=== PATIENT | female | born 1965 | race Caucasian/White ===

== ENCOUNTER 2025-11-07 07:52 | Outpatient (CLI) | payer OTHER, SELFPAY ==
--- OUTSIDE RECORDS SUMMARY | 2025-11-07 07:56 | XMS_ITS | Clinical Summary ---
Author Organization [facility] Address [address] [place] [address] Care Team Providers Care Traveling Construction Superintendent Name Role Phone Radha Garcia Primary Care Provider [phone] Allergies Active Allergy Reactions Criticality Noted Date Comments Codeine Agitation Low 10/02/2014 Hydroxyzine Unknown 02/17/2005 Sulfamethoxazole-Trimethoprim Unknown 2004 Medications levothyroxine (SYNTHROID) 125 mcg tablet Take 1 tablet (125 mcg total) by mouth anesthesiologist/physician before breakfast Active pantoprazole DR (PROTONIX) 40 mg EC tablet Take 1 tablet (40 mg total) by mouth daily Active methylphenidate ER (CONCERTA) 36 mg CR tabletIndications :Attention-Defici t Hyperactivity Disorder Take 1 tablet (36 mg total) by mouth every morning Active canagliflozin-met formin 50-500 mg tablet Take by mouth 2 (two) times a day Active empagliflozin (JARDIANCE) 25 mg tablet 1 tablet (25 mg total) daily Active magnesium hydroxide 400 mg (170 mg magnesium) tablet,chewable Take by mouth Active glimepiride (AMARYL) 1 mg tabletIndications :type 2 diabetes mellitus Take 1 tablet (1 mg total) by mouth daily before breakfast Active cetirizine (ZyrTEC) 10 mg tablet Take 1 tablet (10 mg total) by mouth daily Active rosuvastatin (CRESTOR) 20 mg tablet Take 1 tablet (20 mg total) by mouth daily Active diphenhydrAMINE 25 mg capsule Take 1 tablet/capsule (25 mg total) by mouth every 6 (six) hours as needed for itching Active fluticasone propionate (FLONASE) 50 mcg/actuation nasal spray Administer 1 spray into each nostril daily Active azelastine (ASTELIN) 137 mcg (0.1 %) nasal spray Administer 1 spray into each nostril 2 (two) times a day Use in each nostril as directed Active estradioL (VAGIFEM) 10 mcg tablet Insert 1 tablet (10 mcg total) into the vagina daily Active clobetasoL (TEMOVATE) 0.05 % cream Apply topically 2 (two) times a day Active cholecalciferol (Vitamin D3) 2000 unit tablet Take 50 mcg by mouth 3 Active FreeStyle Lite Strips strip 4 Active alcohol swabs pads, medicated 4 Active diclofenac sodium (VOLTAREN) 1 % gel Active magnesium oxide (MAG-OX) 400 mg (241.3 mg elemental magnesium) tablet 4 Active zhyumtjm-rrh-elzf ous fumarate (Multi Vitamin) 9 mg iron/15 mL liquid Active ferrous sulfate 3.75 mg iron/0.25 mL syringe Active celecoxib (CeleBREX) 200 mg capsuleIndication s:Osteoarthritis Take 1 capsule (200 mg total) by mouth daily 30 capsule 2 5 Active Active Problems Problem Noted Date Diagnosed Date Epistaxis 11/05/2024 Iron deficiency 11/05/2024 Dyspareunia due to medical condition in female 0 06/15/2024 Difficulty breathing 06/15/2024 Dyslipidemia 06/15/2024 Diabetic peripheral neuropathy 06/15/2024 Degeneration of intervertebral disc of lumbosacr al region 06/15/2024 Bilateral otitis media 06/15/2024 Cervicalgia 06/15/2024 Allergic rhinitis due to pollen 06/15/2024 Overview (06/15/2024): will try zyrtec instead of margareth to help with allergy symptoms Allergic rhinitis 06/15/2024 Overview (06/15/2024): Will add flonase daily to margareth; pt. is going on a plane trip next and will call on Tuesday if not improved for possible antibiotics (may have sinus infection, but would like to try flonase first). Adhesive capsulitis of shoulder 06/15/2024 Abdominal pain 06/15/2024 Herniated intervertebral disc of lumbar spine Granuloma annulare 06/15/2024 Flushing 06/15/2024 Finding of above normal blood pressure Hordeolum externum right eye, unspecified eyelid 06/15/2024 Hyperlipidemia 06/15/2024 Hypothyroidism 06/15/2024 Inflammation of peripheral nerve 06/15/2024 Lateral epicondylitis 06/15/2024 Overview (06/15/2024): complicated by possible early cubital tunnel. Start daily use of motic, as naprosyn, aleve, and motrin irritate stomach. Start night time straight elbow bracing of right arm and start daily wear of focal tennis elbow strap, stated that previous brace without focus and usually slipped off. f/u in 1-2 weeks if no improvement with light activities such as writing, to consider injective therapy. f/u if cubital tunnel sympts persist following resolution of tennis elbow pain. Lower back pain 06/15/2024 Menorrhagia 06/15/2024 Overview (06/15/2024): Pt does not want to be on hormonal therapy, her sister recently of breast cancer, counseled pt how fam hx of breast ca not contraindication for OC, she states she did not like the mood swings, she also previously had a copper IUD, discussed Mirena IUD,endometrial ablation and hysterectomy, pt to review literature provided and f/u with desired treatment; note written by ROBBY Martinez/edited for content Female stress incontinence 06/15/2024 Pain in left shoulder 06/15/2024 Pain of left hip joint 06/15/2024 Prurigo nodularis 06/15/2024 Regular astigmatism 06/15/2024 Sinusitis 06/15/2024 Stiffness of unspecified shoulder, not elsewhere classified 06/15/2024 Urinary incontinence 06/15/2024 Urticaria 06/15/2024 Overview (06/15/2024): Discussed the poss etiology and treatment strategy. Will increase Zyrtec to 15 mg po QHS. Discussed the side effect. Will refer pt to Marybeth Contreras. Uterine prolapse 06/15/2024 Deviated nasal septum 02/29/2024 Hypertrophy of nasal turbinates 02/29/2024 Perforation of nasal septum 02/29/2024 Disease due to severe acute respiratory syndrome coronavirus 2 (SARS-CoV-2) 06/28/2023 Overview (06/15/2024): This problem was added by Discern Expert for positive COVID-19 lab test. Herniated lumbar intervertebral disc 10/18/2022 Overweight 10/18/2022 Presbyopia 10/18/2022 Vitamin D deficiency 10/18/2022 Cough 02/13/2019 Attention deficit hyperactivity disorder (ADHD) 01/18/2017 Type 2 diabetes mellitus with other specified co mplication 03/01/2016 Type 2 diabetes mellitus with hyperglycemia 11/21 Surgical History Surgery Date Site/Laterality Comments HYSTERECTOMY WISDOM TOOTH EXTRACTION FL FLUORO GUIDED INJECTION HIP LEFT 03/22/2024 Left Medical History Medical History Date Comments Adhd Diabetes 2004 Gastric reflux Osteoarthritis Thyroid activity decreased Joint pain Family History Medical History Relation Name Comments Cancer Father Cancer Mother Diabetes Mother HEART PROBLEMS Mother Relation Name Status Comments Father Mother Social History Tobacco Use Types Packs/Day Years Used Date Smoking Tobacco: Never Comments Unknown Sex and Gender Information Value Date Recorded Sex Assigned at Not on file Legal Sex Female 10:46 AM FILM REPLACEMENT ORDERER Gender Identity Female 2024 8:53 PM CDT Sexual Orientation Straight 2024 8: 53 PM CDT Last Filed Vital Signs Vital Sign Reading Time Taken Comments Blood Pressure - - Pulse - - Temperature - - Respiratory Rate - - Oxygen Saturation - - Inhaled Oxygen Concentration - - Weight 71.2 kg (157 lb) 12/16/2023 7:53 AM FILM REPLACEMENT ORDERER Height 171.5 cm (5' 7.5) 12/16/2023 7:53 AM FILM REPLACEMENT ORDERER Body Mass Index 24.23 12/16/2023 7:53 AM FILM REPLACEMENT ORDERER Plan of Treatment Health Maintenance Due Date Last Done Comments Albumin Creatinine Ratio, Urine 1964 Breast Cancer Screening-Mammogram 1964 Colon Cancer Screening-Colonoscopy 1964 Depression Screening 1964 Hemoglobin A1C 1964 Hepatitis C Screening 1964 eGFR 1964 Dilated Eye Exam 1964 Foot Exam 1964 Lipid Panel 1964 Regular Well Visit/Exam 18-64 1982 Pneumococcal vaccine <65 (3 of 3 - PCV20 or PCV21) 05/13/2020 05/13/2015, 01/11/2013 Covid-19 Vaccine (5 - 2024-2 6 season) 2025 08/24/2024, 08/24/2021, 02/03/2021, Additional history exists Influenza Vaccine (#1) 2025 , 10/05/2023, 08/19/2022, Additional history exists DTaP/Tdap/Td Vaccine (3 - Td or Tdap) 09/27/2028 09/27/2018, 02/19/2008, 05/01/1997 Hepatitis B Screening Completed 01/11/2013 Zoster Vaccine Completed 01/05/2022, 09/24/2021 Insurance [facility] Care Teams Traveling Construction Superintendent Relationship Specialty Start Date End Date Radha Garcia PA [address] [place] [address] PCP - General Physician Pattern Stamper 03/16/24
--- OUTSIDE RECORDS SUMMARY | 2025-11-07 07:56 | XMS_ITS | Encounter Summary ---
Author Organization [facility] Address [address] [place] [address] Care Team Providers Care Cash Applications Representative Name Role Phone Radha Garcia Primary Care Provider [phone] Joseph Mcadams Primary Care Provider [phone] Encounter Details Date Type Department Care Team (Late st Contact Info) Description 02/06/2025 Prep for Procedure [facility] Diagnostic Imaging [facility] [place], [place] [id number] Kamari Macias, DO [address] [place] [address] Social History Tobacco Use Types Packs/Day Years Used Date Smoking Tobacco: Never Smokeless Tobacco: Never Alcohol Use Standard Drinks/Week Comments Not Currently 0 (1 standard drink = 0.6 oz pur e alcohol) very rare... twice a year Comments No Sex and Gender Information Value Date Recorded Sex Assigned at Female 02/13/2025 5:32 AM CDT Legal Sex Female 12:03 PM CDT Gender Identity Not on file Sexual Orientation Not on file documented as of this encounter Plan of Treatment Not on file documented as of this encounter Results * XR CHEST PA+LAT (02/12/2025 8:54 AM CDT) Anatomical Region Laterality Modality Chest Radiographic Kassidy ging 02/12/2025 8:57 AM CDT Impressions 02/12/2025 8:57 AM CDT =====IMPRESSION:===== No acute cardiopulmonary findings. Ordered By: AKMARI MACIAS Interpreted By: Herbie Lowry MD, 02/12/2025 8:57 AM Narrative 02/12/2025 8:57 AM CDT [place] [address] Examination: Chest x-ray 2 view Exam date/time: 02/12/2025 8:45 AM Reason For Exam: Preoperative evaluation. History of diabetes mellitus. Comparison: None available. Technique: PA and lateral views of the chest were obtained. Findings: The cardiac silhouette, mediastinal contours, and pulmonary vessels appear normal. The lungs are clear. No pneumothorax. No consolidations or effusions are seen. Thoracic spondylosis. Procedure Note Herbie Lowry MD - 02/12/2025 [place] [address] Examination: Chest x-ray 2 view Exam date/time: 02/12/2025 8:45 AM Reason For Exam: Preoperative evaluation. History of diabetes mellitus. Comparison: None available. Technique: PA and lateral views of the chest were obtained. Findings: The cardiac silhouette, mediastinal contours, and pulmonaryvessels appear normal. The lungs are clear. No pneumothorax. Noconsolidations or effusions are seen. Thoracic spondylosis. =====IMPRESSION:===== No acute cardiopulmonary findings. Ordered By: KAMARI MACIAS Interpreted By: Herbie Lowry MD, 02/12/2025 8:57 AM Kamari Macias DO GENERAL IMAGING Final Result documented in this encounter Visit Diagnoses Diagnosis Preop examination- Primary Preoperative examination, unspecified Prolapse of female pelvic organs Unspecified genital prolapse Preop examination Preoperative examination, unspecified Prolapse of female pelvic organs Unspecified genital prolapse documented in this encounter Care Teams Cash Applications Representative Relationship Specialty Start Date End Date Radha Garcia PA [address] [facility] [address] [place], [place] [address] PCP - General PHYSICIAN RAG WILLOW OPERATOR 02/21/24 02/12/25 Joseph Mcadams PA [address] [place], [place] [id number] PCP - General PHYSICIAN RAG WILLOW OPERATOR 02/13/25 documented as of this encounter
--- OUTSIDE RECORDS SUMMARY | 2025-11-07 07:56 | XMS_ITS | Patient Health Record ---
Author Organization [facility] Address [address] [place] [address] [address] [place] [address] Care Team Providers Care Discovery Guide Name Role Phone DR. Kendra Stuart Unavailable [phone] Allergies Allergen (clinical drug ingredient) Drug/Non Drug Allergy documented on EMR Reaction Allergy Type Onset Date Status Atarax, Bactrim (uncoded) Hives, rash Allergy Active Reason For Referral No Information Medications Medication SIG (Take, Route, Frequency, Duration) Notes Start Date End Date Status Naprosyn Active metFORMIN HCl Active Concerta Active Astelin Active Bydureon Active Flonase Active Benadryl Active Protonix Active Synthroid Active Magnesium Active Vitamin D Active Vagifem Active Crestor Active Clobetasol & Clobetasol Emul Active ZyrTEC Active Social History Tobacco Use: Social History Observation Description Date Details (start date - stop date) Never Smoker NA - NA Social History General Social Info Question Answer Notes Tobacco: Cigarettes/Cigars Smoking Status: never s moker Second hand smoke exposure? No Tobacco Use other than smoking? No Household and Family: Marital Status: Patient under 18 (pediatric): No Employment/Education: Status: Unemployed. Pediatric: No Problems Problem Type SNOMED Code ICD Code Onset Dates Problem Status W/U Status Risk Notes Problem Bilateral tinnitus (5569672692006 ) Bilateral tinnitus (H93.13) Active confirmed Plan Of Treatment Pending Test Test Name Order Date Audio: Air Conduction 06/06/2019 Audio: Speech Audio Threshold w/Recognit ion 06/06/2019 Audio: Tympanometry 06/06/2019 Insurance Providers Payer Name Payer Address Payer Phone Subscriber Number Group Number Insured Name Patient Relationship to Insured Coverage Start Date Coverage End Date [facility] [address] [place] [address] [id number] Nick Patel Jr Spouse - patient is the spouse of the insured Medical (General) History Medical History History ICD Code Problems with General Anesthesia: Yes Malignant Hyperthermia: No On Blood Thinners: No allergies, seasonal environmental: Yes Sinus infection, recurrent: Yes Diabetes: Yes Hormonal Imbalance: Yes Thyroid Problems: Yes Surgical History Surgery Date(Month/Year) wisdom teeth removal 10/02/1981 hysterectomy 02/24/2010 Hospitalization History Reason Date(Month/Year) strep throat 11/30/1983 cellulitis (knee) 06/19/2015
--- OUTSIDE RECORDS SUMMARY | 2025-11-07 07:56 | XMS_ITS | Clinical Summary ---
Author Organization [facility] Address [facility] [place] [address] Care Team Providers Care Clam Shovel Operator Name Role Phone Joseph Mcadams Primary Care Provider [phone] Allergies Active Allergy Reactions Criticality Noted Date Comments Hydroxyzine Hives 02/06/2025 Codeine Other (see comment) Low 10/01/2014 Keeps me awake Sulfamethoxazole-Trimet hoprim Other (see comment) 02/16/2005 Had fever- T cells abnormal- fever 105 Medications methylphenidate CR (CONCERTA) 36 MG tablet Take 2 tablets (72 mg total) by mouth every morning. Active levothyroxine (SYNTHROID) 125 MCG tablet Take 1 tablet (125 mcg total) by mouth every morning. Active pantoprazole EC (PROTONIX) 40 MG tablet Take 1 tablet (40 mg total) by mouth daily. Active sitaGLIPtin-met FORMIN ER (JANUMET XR) 50-1000 MG TABLET SR 24 HR 24 hr tablet Take 1 tablet by mouth 2 (two) times a day. Active empagliflozin (JARDIANCE) 25 MG tablet Take 1 tablet (25 mg total) by mouth daily. Active Magnesium 400 MG Cap Take 1 tablet by mouth 2 (two) times a day. Active glimepiride (AMARYL) 1 MG tablet Take 1 tablet (1 mg total) by mouth every morning before breakfast. Active Vitamin D3 (CHOLECALCIFERO L) 50 mcg tablet Take 1 tablet (50 mcg total) by mouth daily. Active Multiple Vitamins-Minera ls (MULTIVITAMIN ADULT, MINERALS, OR) Take by mouth daily. Active dulaglutide (TRULICITY) 1.5 MG/0.5ML injection Inject 1.5 mg into the skin once a week. Active ferrous sulfate, 65 mg elemental, 325 (65 FE) MG tablet Take 1 tablet (325 mg total) by mouth every other day. Active celecoxib (CELEBREX) 200 MG capsule Take 1 capsule (200 mg total) by mouth daily. Active cetirizine (ZYRTEC) 10 MG tablet Take 1 tablet (10 mg total) by mouth nightly. Active rosuvastatin (CRESTOR) 20 MG tablet Take 1 tablet (20 mg total) by mouth nightly at bedtime. Active traZODone (DESYREL) 50 MG tablet Take 1 tablet (50 mg total) by mouth nightly at bedtime. Active fluticasone propionate (FLONASE) 50 MCG/ACT nasal spray 2 sprays by Each Nostril route nightly. Active azelastine (ASTELIN) 0.1 % nasal spray 2 sprays by Nasal route nightly. Active clobetasol (TEMOVATE) 0.05 % cream Apply topically as needed. Active Estradiol (VAGIFEM) [address] vaginally 3 (three) times a week. Active oxymetazoline (AFRIN) 0.05 % nasal spray 2 sprays by Nasal route nightly as needed for Congestion. Active Active Problems Problem Noted Date Diagnosed Date Prolapse of anterior vaginal wall 02/13/2025 Family History Medical History Relation Comments Cancer Brother Cancer Father lung Heart Disease Maternal Grandmother Cancer Mother breast Cancer Sister 1 breast with bone mets Cancer Sister 2 breast Relation Status Comments Brother Father (Age 57) Maternal Grandmother (Age 97) Mother (Age 80s) Sister 1 Sister 2 Alive Social History Tobacco Use Types Packs/Day Years Used Date Smoking Tobacco: Never Smokeless Tobacco: Never Tobacco Cessation:Counseling Given: Not Answered Alcohol Use Standard Drinks/Week Comments Not Currently 0 (1 standard drink = 0.6 oz pur e alcohol) very rare... twice a year Comments No Sex and Gender Information Value Date Recorded Sex Assigned at Female 02/13/2025 5:32 AM CDT Legal Sex Female 12:03 PM CDT Gender Identity Not on file Sexual Orientation Not on file Last Filed Vital Signs Vital Sign Reading Time Taken Comments Blood Pressure 140/60 02/13/2025 10:15 AM CDT Pulse 60 02/13/2025 9:45 AM CDT Temperature 36.1 C (97 F) 02/13/2025 10:15 AM CDT Respiratory Rate 16 02/13/2025 10:1 5 AM CDT Oxygen Saturation 97% 02/13/2025 10: 15 AM CDT Inhaled Oxygen Concentration - - Weight 65.7 kg (144 lb 13.5 oz) 02/13/2025 6:30 AM CDT Height 171.5 cm (5' 7.5) 02/13/2025 6:30 AM CDT Body Mass Index 22.35 02/13/2025 6:30 AM CDT Plan of Treatment Health Maintenance Due Date Last Done Comments Colorectal Cancer Screening Colonoscopy (10 Years) 1964 Annual Physical 1967 Hepatitis C 1982 Mammogram Screening 2004 Pneumococcal Vaccine: 50+ Years (3 of 3 - PCV20 or PCV21) 05/13/2020 05/13/2015, 01/11/2013 COVID-19 Vaccine ( season) 2025 08/24/2024, 10/05/2023, 08/24/2021, Additional history exists Influenza Adult (#1) 2025 08/24/2024, 10/05/2023, 08/19/2022, Additional history exists DTaP, Tdap and Td Vaccines (3 - Td or Tdap) 09/27/2028 09/27/2018, 02/19/2008, 05/01/1997 Hepatitis A Vaccines Aged Out 03/19/1999, 02/25/19 98 No longer eligible based on patient's age to complete this topic Zoster Vaccines Completed 01/05/2022, 09/24/2021 RSV Immunization or 60+ Years Completed 09/12/2024 Meningococcal B Vaccine Aged Out No l onger eligible based on patient's age to complete this topic Meningococcal Vaccine Aged Out No brian wilver eligible based on patient's age to complete this topic RSV Immunizations Under 20 Months Aged Out No longer eligible based on patient's age to complete this topic Insurance Advance Directives * Full Code (Latest Code Status on File) Date Activated Date Inactivated Comments 02/13/2025 9:40 AM 02/13/2025 12:58 PM Care Teams Clam Shovel Operator Relationship Specialty Start Date End Date Joseph Mcadams PA [address] [place] [address] PCP - General PHYSICIAN BRAKE REPAIRER AIR 02/13/25
--- OUTSIDE RECORDS SUMMARY | 2025-11-07 07:56 | XMS_ITS | Encounter Summary ---
Author Organization [facility] Address [address] [place] [id number] Care Team Providers Care Top Cleaner Name Role Phone Radha Garcia Primary Care Provider [phone] Joseph Mcadams Primary Care Provider [phone] Encounter Details Date Type Department Care Team (Late st Contact Info) Description 02/06/2025 Prep for Procedure [facility] [place], [place] [id number] Aron Macias, DO [address] [place] [address] Social History Tobacco Use Types [...] documented as of this encounter Results * (ABNORMAL) COMPREHENSIVE METABOLIC PANEL (02/12/2025 8:45 AM CDT) GLUCOSE 241(H) 70 - 99 MG/DL 02/12/2025 9:37 AM CDT [facility] BUN 17 7 - 18 MG/DL 02/12/2025 9:37 AM CDT [facility] CREATININE S/P/B 0.54(L) 0.55 - 1.02 MG/DL 02/12/2025 9:37 AM CDT [facility] SODIUM S/P/B 140 136 - 145 MMOL/L 02/12/2025 9:37 AM T [facility] POTASSIUM S/P/B 4.5 3.5 - 5.1 MMOL/L 02/12/2025 9:37 AM CDT [facility] CHLORIDE S/P/B 105 97 - 115 MMOL/L 02/12/2025 9:37 AM CDT [facility] CO2 28.5 21 - 32 MMOL/L 02/12/2025 9:37 AM CDT [facility] CALCIUM S/P/B 8.9 8.5 - 10.1 MG/DL 02/12/2025 9:37 AM T [facility] BILIRUBIN TOTAL S/P/B 1.0 0.2 - 1.2 MG/DL 02/12/2025 9:37 AM T [facility] Comment: THIS ASSAY IS NOT RECOMMENDED FOR PATIENTS UNDERGOING TREATMENT WITH ELTROMBOPAG DUE TO THE POTENTIAL FOR FALSELY ELEVATED RESULTS. TOTAL PROTEIN S/P/B 6.6 6.4 - 8.2 G/DL 02/12/2025 9:37 AM T [facility] ALBUMIN S/P/B 3.7 3.4 - 5.0 G/DL 02/12/2025 9:37 AM CDT [facility] AST 16 15 - 37 U/L 02/12/2025 9:37 AM T [facility] ALT 26 14 - 55 U/L 02/12/2025 9:37 AM T [facility] ALKALINE PHOSPHATASE S/P/B 73 50 - 136 U/L 02/12/2025 9:37 AM CDT [facility] ANION GAP 6.5 2 - 10 MMOL/L 02/12/2025 9:37 AM CDT [facility] BUN CREATININE RATIO 31.6(H) 6 - 26 02/12/2025 9:37 AM CDT [facility] A/G RATIO 1.3 1.0 - 2.0 RATIO 02/12/2025 9:37 AM CDT [facility] GFR ESTIMATE >90 >90 ML/MIN/1.7 3 M2 02/12/2025 9:37 AM CDT [facility] Comment: NOTE: eGFR is not calculated for patients <18 years of age or gender unknown. This is an estimated GFR calculation using the new CKD EPI creatinine equation without race and so does not require a correction factor for race. This estimated GFR should not be used for calculating drug doses. 02/12/2025 8:45 AM CDT us Aron Macias DO LABORATORY Final Result [facility] [address] [id number], * (ABNORMAL) CBC W/DIFF AUTOMATED (02/12/2025 8:45 AM CDT) WBC 4.18(L) 4.5 - 11.0 x10'3/uL 02/12/2025 9:22 AM CDT [facility] RBC 4.65 4.20 - 5.40 x10'6/uL 02/12/2025 9:22 AM CDT [facility] HGB 14.1 12.0 - 16.0 G/DL 02/12/2025 9:22 AM CDT [facility] HCT 43.3 38.0 - 48.0 % 02/12/2025 9:22 AM CDT [facility] MCV 93.1 81.0 - 99.0 FL 02/12/2025 9:22 AM CDT [facility] MCH 30.3 27.0 - 31.0 PG 02/12/2025 9:22 AM CDT [facility] MCHC 32.6 32.0 - 36.0 G/DL 02/12/2025 9:22 AM CDT [facility] RDW 13.0 11.5 - 14.5 % 02/12/2025 9:22 AM CDT [facility] PLT 252 130 - 400 x10'3/uL 02/12/2025 9:22 AM CDT [facility] MPV 9.8 9.3 - 12.2 FL 02/12/2025 9:22 AM CDT [facility] DIFFERENTIAL TYPE AUTOMATED DIFFERENTIAL 02/12/2025 9:22 AM CDT [facility] NEUTROPHILS % 47.6 % 02/12/2025 9:22 AM CDT [facility] LYMPHOCYTES % 37.8 % 02/12/2025 9:22 AM CDT [facility] MONOCYTES % 9.6 % 02/12/2025 9:22 AM CDT [facility] EOSINOPHILS 3.8 % 02/12/2025 9:22 AM CDT [facility] BASOPHILS 1.0 % 02/12/2025 9:22 AM CDT [facility] IMMATURE GRANS % 0.2 % 02/13/20 9:22 AM CDT [facility] ABS. NEUTROPHILS 1.99 1.80 - 7.70 x10'3/uL 02/12/2025 9:22 AM CDT [facility] ABS. LYMPHOCYTES 1.58 1.00 - 4.80 x10'3/uL 02/12/2025 9:22 AM CDT [facility] ABS. MONOCYTES 0.40 0.24 - 0.86 x10'3/uL 02/12/2025 9:22 AM CDT [facility] ABS. EOSINOPHILS 0.16 0.04 - 0.36 x10'3/uL 02/12/2025 9:22 AM CDT [facility] ABS. BASOPHILS 0.04 0.01 - 0.08 x10'3/uL 02/12/2025 9:22 AM CDT [facility] ABS. IMMATURE GRANULOCYTES 0.01 0.00 - 0.49 x10'3/uL 02/12/2025 9:22 AM CDT [facility] 02/12/2025 8:45 AM CDT Aron Macias DO LABORATORY Final Result [facility] [address] [place] [address], documented in this encounter Visit Diagnoses Diagnosis Preop examination- Primary Preoperative examination, unspecified Female genital prolapse, unspecified documented in this encounter Care Teams Top Cleaner Relationship Specialty Start Date End Date Radha Garcia PA [address] [facility] [address] [place] [address] PCP - General PHYSICIAN FUR VAULT ATTENDANT 02/21/24 02/12/25 Joseph Mcadams PA [address] [place] [address] PCP - General PHYSICIAN FUR VAULT ATTENDANT 02/13/25 documented as of this encounter
--- NOTE | 2025-11-07 08:03 | ECG_ITS ---
Test Date: 2025-11-07 08:07:42 Measurements Intervals [place] Rate: 80 P: 55 [place]: 178 QRS: 44 QRSD: 99 T: 12 QT: 379 QTc: 439 Interpretive Statements SINUS RHYTHM BASELINE ARTIFACT- I, II, III, AVR, AVL NORMAL ECG No previous ECG available for comparison Electronically Signed On 11-07-2025 08:21:46 HOTEL DIRECTOR by Alberto Kerr D.O.
[2025-11-07 08:48] LABS: Anion Gap 6 mmol/L (4-12); Blood Urea Nitrogen 15 mg/dL (7-17); Calcium 9.1 mg/dL (8.4-10.2); Carbon Dioxide 29 mmol/L (22-30); Chloride 106 mmol/L (98-107); Estimated Glomerular Filt Rate > 60; Glucose 258 mg/dL (65-110); Potassium 4.5 mmol/L (3.4-5.0); Sodium 141 mmol/L (137-145)
== END 2025-11-07 07:53 | disposition home or self-care (01) ==
PROVIDERS: Anesthesiology; Visit Provider Orthopaedic Surgery
DX: E11.9 Type 2 diabetes mellitus without complications (principal); Z01.818 Encounter for other preprocedural examination
CPT/HCPCS: 36415; 80048; 93005

== ENCOUNTER 2025-11-08 00:34 | Day surgery (SDC) | payer OTHER, SELFPAY ==
[2025-11-06 08:25] VITALS: BMI 23.1
--- NOTE | 2025-11-06 08:35 | PC.NURSE ---
[facility] has started construction of its new state of the art ER which will open Spring 2026. With this, we anticipate parking may be a challenge for some our surgical patients and families. Parking spaces are limited but are available for all Surgical, obstetrics, and ER patients sharing this lot. If you arrive and find you are having a hard time finding a parking space, please note that we understand the challenges, please drive around the hospital and park near Hospital Entrance 1. When you enter this entrance, you can ask a volunteer to direct or take you back to the surgical waiting area to check in. We appreciate everyone?s understanding of these expected challenges while we build for your future. Report to the Outpatient Waiting Room, entrance under the green pavilion located off [address], at time 1000_ on date _11/08/25_. Planned Procedure Time: _1200.? Time changes happen often and if your time is changed the preop area will call you the afternoon before. - You and your visitor will be asked to self-screen and do not enter if you have any COVID symptoms. Please call surgeon if you need to reschedule. - A mask is optional within the hospital at this time. Patients may have clear liquids (water, carbonated beverages, clear teas, apple juice) until 3 hours prior to surgery with a maximum of 20 ounces. - No food from midnight until time of surgery and no smoking, or chewing tobacco (or any form of nicotine). No chewing gum, candy or mints. - Take only the following medications with a SIP of water on the morning of surgery: ____LEVOTHYROXINE, CONCERTA DO NOT STOP ANY OF YOUR OTHER PRESCRIPTION MEDICATIONS PRIOR TO SURGERY EXCEPT THE FOLLOWING Hold all vitamins and supplements for 3 days per anesthesiologist. Medications to discontinue per physician ____TRULICITY- PT STOPPED 1 WEEK AGO Date to take last dose Please no make-up, nail pakistani, hairspray, perfume, deodorant, or body powder the day of surgery.? No jewelry (including any body piercings) or valuables the day of surgery, leave them at home.? Please take a shower or bath the night before, or the morning of, surgery with an antibacterial soap.? Wear comfortable, loose fitting clothing.? Children are encouraged to wear pajamas. - Jewelry must be removed prior to entering the operating room.? Rings and piercings that are not removed may be cut off. - The hospital will not accept responsibility for valuables.? - Please leave all valuables, including medications, at home the day of surgery. If you are going home after surgery, a licensed company truck driver must drive you home.? - NO public transportation without another adult if you receive anesthesia. - We recommend that an adult stay with you for 24 hours following discharge. - We also recommend that you do not drive, make important decision, drink alcoholic beverages, or take any drugs that were not prescribed by your health care provider for at least 24 hours after your discharge time. For Pediatric surgeries, we recommend two adults accompany the child home. Follow any additional instructions given to you from your surgeon. Telephone instructions given to __PATIENT_and asked if any additional questions and then verbalized understanding. Patient advised to call surgeon office or pre surgery nurse liaison [phone] if any additional questions.
[2025-11-08] VITALS (8 sets, daily range): BP systolic 113–133; BP diastolic 57–71; PULSE 69–82; RESP 12–18; TEMP 36.4–36.8; O2SAT 98–100
[2025-11-08] MEDS: ACETAMINOPHEN 500 MG TABLET 1000 MG PO (10:35)
--- NOTE | 2025-11-08 11:21 | WPDANESEPPF ---
Anes - Initial Pre Proc Eval Procedure: Operation Date: 11/08/25 12:00 Proposed Procedures p Arthroscopic Left Hip Intertrochanteric Band Release with Bursectomy - Samy Rooney MD Date/Time: 11/08/25 11:21 Surgeon: Samy Rooney MD Pre Op Diagnosis: left hip trochanteric bursitis Patient Data Age: 60 Gender: F Height: 1.71 m Weight: 68.7 kg Last Vital Signs Temp 36.8 C 11/08/25 10:35 Pulse 82 11/08/25 10:35 Resp 16 11/08/25 10:35 BP 123/60 11/08/25 10:35 Pulse Ox 98 11/08/25 10:35 O2 Del Method Room Air 11/08/25 10:35 Allergies Allergy/AdvReac Type Severity Reaction Status Date / Time codeine Allergy Unknown Rash Verified 11/08/25 10:56 hydroxyzine (From Atarax) Allergy Unknown Unknown Verified 11/08/25 10:56 Sulfa (Sulfonamide Allergy Unknown Rash Verified 11/08/25 10:56 Antibiotics) Home Medications ?Medication ?Instructions ?Recorded ?Confirmed ?Type azelastine 137 mcg (0.1 %) nasal 137 mcg intranasal DAILY 06/27/25 11/08/25 History spray celecoxib 200 mg capsule (Celebrex) 200 mg PO DAILY 06/27/25 11/08/25 History cetirizine 10 mg tablet 10 mg PO DAILY PRN allergy symptoms 06/27/25 11/06/25 History clobetasol 0.05 % topical cream 1 applic topical DAILY PRN ITCHY 06/27/25 11/06/25 History SKIN dulaglutide 1.5 mg/0.5 mL 1.5 mg subcut WEEKLY 06/27/25 11/06/25 History subcutaneous pen injector (Trulicity) empagliflozin 25 mg tablet 25 mg PO DAILY 06/27/25 11/06/25 History (Jardiance) fluticasone propionate 50 1 spray intranasal DAILY 06/27/25 11/06/25 History mcg/actuation nasal spray,suspension (Flonase Allergy Relief) glimepiride 1 mg tablet 1 mg PO QAM 06/27/25 11/06/25 History lancets 28 gauge (FreeStyle 06/27/25 07/04/25 History Lancets) levothyroxine 125 mcg capsule 125 mcg PO DAILY 06/27/25 11/08/25 History magnesium oxide 400 mg (241.3 mg 400 mg PO BID 06/27/25 11/06/25 History magnesium) tablet methylphenidate HCl 36 mg 72 mg PO QAM 06/27/25 11/08/25 History tablet,extended release 24 hr (Concerta) multivitamin 1 tablet PO DAILY 06/27/25 11/06/25 History pantoprazole 40 mg tablet,delayed 40 mg PO QAM 06/27/25 11/06/25 History release rosuvastatin 20 mg tablet 20 mg PO DAILY 06/27/25 11/08/25 History sitagliptin phosphate 50 1 tablet PO BID 06/27/25 11/06/25 History mg-metformin 1,000 mg tablet (Janumet) trazodone 50 mg tablet 50 mg PO QHS PRN SLEEPLESSNESS 06/27/25 11/06/25 History valacyclovir 1 gram tablet 1,000 mg PO DAILY PRN OUTBREAK OF 06/27/25 11/06/25 History (Valtrex) COLD SORE cholecalciferol (vitamin D3) 25 25 mcg PO DAILY 11/06/25 11/08/25 History mcg (1,000 unit) capsule (Vitamin D3) conjugated estrogens 0.625 mg/gram 0.625 mg vaginal DAILY 11/06/25 11/06/25 History vaginal cream (Premarin) diclofenac sodium 1 % topical gel 2 g topical BID 11/06/25 11/06/25 History estradiol 10 mcg vaginal tablet 10 mcg vaginal 3XW 11/06/25 11/06/25 History (Yuvafem) Laboratory Tests 11/08/25 10:34 POC Capillary Glucose 154 H mg/dl (65-105) Patient hx anesthesia problems: none Family hx anesthesia problems: none Results Review: All pre-operative results and documents have been reviewed as part of the pre-operative evaluation. [facility] Past Medical History Medical History Dyslipidemia Vitamin D deficiency Uterovaginal prolapse Type 2 diabetes mellitus Prolapsed lumbosacral intervertebral disc Postmenopausal state Perforation of nasal septum Urinary incontinence, mixed [employer] current use of oral hypoglycemic drug [employer] (current) use of non-steroidal anti-inflammatories (nsaid) Hypothyroidism Hyperlipidemia GERD (gastroesophageal reflux disease) Diabetic peripheral neuropathy Bilateral leg cramps ADHD Allergic rhinitis Surgical History Surgical History History of vaginal surgery (~2024) anterior repair History of D&C History of total hysterectomy (~02/2010) History of nasal septoplasty (~03/2024) Family History Family History Mother Breast cancer CHF (congestive heart failure) Chronic lymphocytic leukemia Diabetes mellitus Sibling Breast cancer Diabetes mellitus Father Lung cancer Sibling Esophageal cancer Social History Social History Smoking status: Never smoker Alcohol intake: current Alcohol use details: 3 PER YEAR Lack of Transportation: YES Lack of Food: Never True Current Housing: I Have Housing Concerned About Future Housing: No Difficulty Paying Gas/Electric Bills: No Difficulty Paying for Meds: No Currently Unemployed: No Education: Master's Degree or Higher Difficulty w/ Childcare or Family Care: No Living arrangements: with family Anes - Eval Final PreProcedure Day of Procedure 11/08/25 11:21 Patient weight: normal Heart: regular rate and rhythm Lungs: clear to auscultation Airway: Mallampati scale class III Neurological: alert and oriented Last oral intake: >/= 8 hours ASA classification: III Emergent: no Anesthetic plan: proceed Anesthesia type and monitoring: general ETT and standard monitoring Results Review: All pre-operative results and documents have been reviewed as part of the pre-operative evaluation. Informed Consent: The patient's anesthetic plan and its attendant risks and benefits were discussed with the patient/family/POA. Questions were solicited and answers provided to the satisfaction of the patient/family/POA.
--- NOTE | 2025-11-08 12:10 | WPDHPUPDATE1 ---
History and Physical Update Update Date/Time: 11/08/25 12:10 History and Physical has been reviewed, including an updated exam of the patient. There are NO changes in the patient's condition. Risks, benefits, and alternatives have been discussed and questions answered. Patient agrees to proceed with procedure.
[2025-11-08] MEDS: ceFAZolin 2 GM in SODIUM CHLORIDE 0.9% IV 50 ML 100 ML IVPB (12:25)
--- NOTE | 2025-11-08 13:26 | P.OP_ITS ---
Procedure Note - Detailed Date of Procedure 11/08/25 Pre-op Diagnosis Left hip trochanteric bursitis Post-op Diagnosis Same Procedure Performed Arthroscopic IT band release and trochanteric bursectomy, left hip. Surgeon Samy Rooney MD [employer] Senior Project Manager Michelle Montgomery PA-C Anesthesia General Findings The abductor musculature appeared healthy without any evidence for tearing. No significant bony spurs were encountered. An area of hyperemia at the apex of the trochanter was observed. Description of Procedure The patient was identified and the surgical site confirmed and signed in the preoperative holding area. Antibiotics were started per protocol. She was brought to the operative room and transferred to the OR table. A general anesthetic was administered. Lateral position with hip positioners. The hip was prepped and draped in the usual sterile fashion. A time-out was performed. The portal sites were marked and infiltrated with 0.5% Marcaine 20 mL. Two portals were established. The first portal was proximal to the greater trochanter, and 2nd just distal to the vastus lateralis insertion. Inflow was obtained with the saline pump. The camera was introduced. The camera was introduced superior to the deep fascia. A spinal needle was used to confirm the high point of the greater trochanter. The arthroscopic shaver was used to clear the subcutaneous tissues off of the surgical site. The radiofrequency probe was used to release the iliotibial band longitudinal. The lower extremity was abducted allowing for inspection of the trochanteric bursa. The thickened tissue was resected with the arthroscopic shaver. Special care was taken to avoid inadvertent posterior debridement, to protect the sciatic nerve. The arthroscopic instruments were removed. The tourniquet released and wounds closed with subcutaneous 3-0 Monocryl absorbable suture. Steri strips and a sterile dressing were applied. A light elastic wrap was placed. The patient was extubated and brought to the recovery room in stable condition. Estimated Blood Loss 5 Drains No Packing No Pathology None sent Complications No immediate complications Condition Stable Disposition PACU [facility] Billing Surgery - Charge Forward: Surgery Billing
[2025-11-08] MEDS: LACTATED RINGERS 1,000 ML 30 ML IV CONT ×2 (13:36→14:00)
[2025-11-08] MEDS: oxyCODONE HCL (*CRX) 5 MG TAB IR PO (15:12)
== END 2025-11-08 15:50 | disposition home or self-care (01) ==
PROVIDERS: Visit Provider Orthopaedic Surgery
PROC: (CPT 29860; principal; 2025-11-08 12:00)
DX: M70.62 Trochanteric bursitis, left hip (principal); G89.29 Other chronic pain; E78.5 Hyperlipidemia, unspecified; E55.9 Vitamin D deficiency, unspecified; E11.42 Type 2 diabetes mellitus with diabetic polyneuropathy; N39.46 Mixed incontinence; E03.9 Hypothyroidism, unspecified; K21.9 Gastro-esophageal reflux disease without esophagitis; F90.9 Attention-deficit hyperactivity disorder, unspecified type; Z79.84 Long term (current) use of oral hypoglycemic drugs; Z79.1 Long term (current) use of non-steroidal anti-inflammatories (NSAID); Z79.85 Long-term (current) use of injectable non-insulin antidiabetic drugs; Z98.890 Other specified postprocedural states; Z98.1 Arthrodesis status; Z80.3 Family history of malignant neoplasm of breast; Z80.6 Family history of leukemia; Z80.1 Family history of malignant neoplasm of trachea, bronchus and lung; Z80.0 Family history of malignant neoplasm of digestive organs; Z82.49 Family history of ischemic heart disease and other diseases of the circulatory system
CPT/HCPCS: 29999; 27062; 82948; J0690; A9270; J1100; J1885; J2250; J2405; J2704; J3010; J7120